=== PATIENT | female | born 1995 | race American Indian/Alaskan Native ===

== ENCOUNTER 2018-04-03 02:57 | Emergency (ER) | payer MEDICAID ==
[2018-04-03 03:23] VITALS: BP 113/64
--- NOTE | 2018-04-03 03:30 | EDM.PDOC ---
ED HPI GENERAL MEDICAL PROBLEM - General Chief Complaint: ENT Problem Stated Complaint: COUGH, FEVER [id number] Time Seen by Provider: 04/03/18 03:29 Source of Information: Reports: Patient History Limitations: Reports: No Limitations - History of Present Illness INITIAL COMMENTS - FREE TEXT/NARRATIVE: got sick yesterday with baby, c/o fever and sore throat. Throat Pain Score (Numeric/FACES): 6 - Related Data Allergies Allergy/AdvReac Type Severity Reaction Status Date / Time No Known Allergies Allergy Verified 04/03/18 03:03 Home Meds: Home Meds Ferrous Sulfate [Iron] 1 tab PO BID 08/17/16 [History] Acetaminophen [Tylenol] 650 mg PO Q6H PRN #30 tablet 12/20/16 [Rx] Docusate Sodium [Colace] 100 mg PO BID PRN #60 cap 12/20/16 [Rx] Ibuprofen [IJD: Ibuprofen] 600 mg PO Q6H PRN #30 tablet 12/20/16 [Rx] Past Medical History - Past Health History Medical/Surgical History: Denies Medical/Surgical History HEENT History: Reports: None Cardiovascular History: Reports: None Respiratory History: Reports: Other (See Below) Other Respiratory History: Reactive Airway Disease Gastrointestinal History: Reports: None Genitourinary History: Reports: None 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/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 Musculoskeletal History: Reports: Fracture Other Musculoskeletal History: broke her leg at 6 years old Neurological History: Reports: None Psychiatric History: Reports: None Endocrine/Metabolic History: Reports: None Hematologic History: Reports: Anemia Immunologic History: Reports: None Oncologic (Cancer) History: Reports: None Dermatologic History: Reports: None - Infectious Disease History Infectious Disease History: Reports: Chicken Pox - Past Surgical History Head Surgeries/Procedures: Reports: None Social & Family History - Family History Family Medical History: Noncontributory - Tobacco Use Smoking Status *Q: Never Smoker Second Hand Smoke Exposure: No - Caffeine Use Caffeine Use: Reports: None ED ROS ENT - Review of Systems Review Of Systems: ROS reveals no pertinent complaints other than HPI. ED EXAM, ENT - Physical Exam Exam: See Below Exam Limited By: No Limitations General Appearance: Alert, WD/WN, Mild Distress, Other (upset) Ears: TM Dullness Nose: Normal Inspection Mouth/Throat: Pharyngeal Erythema, Tonsillar Erythema Head: Atraumatic Neck: Non-Tender, Full Range of Motion Respiratory/Chest: No Respiratory Distress, Lungs Clear, Normal Breath Sounds, No Accessory Muscle Use Cardiovascular: Regular Rate, Rhythm GI/Abdominal: Soft, Non-Tender Neurological: Alert, Oriented, Normal Cognition, Normal Gait, No Motor/Sensory Deficits Psychiatric: Flat Affect Skin: Warm, Dry, Normal Color Lymphatic: No Adenopathy Course - Vital Signs Last Recorded V/S: Last Vital Signs Temp 37.7 C 04/03/18 02:59 Pulse 105 H 04/03/18 02:59 Resp 18 04/03/18 02:59 BP 113/64 04/03/18 02:59 Pulse Ox 99 04/03/18 02:59 - Orders/Labs/Meds Orders: Active Orders 24 hr Category Date Time Status CULTURE STREP A CONFIRMATION [RM] Stat Lab 04/03/18 03:10 Results STREP SCRN A RAPID W CULT CONF [RM] Stat Lab 04/03/18 03:10 Results - Re-Assessments/Exams Free Text/Narrative Re-Assessment/Exam: 04/03/18 03:37 results discussed with pt. Departure - Departure Time of Disposition: 03:37 Disposition: Home, Self-Care 01 Condition: Good Clinical Impression: Tonsillitis - Discharge Information Instructions: Tonsillitis, [id number] Forms: ED Department Discharge Additional Instructions: 1) avoid solid foods and scratchy foods 2) take tylenol or motrin for fever 3) recheck as needed rx given; amox 250mg tid x 30 - My Orders Last 24 Hours: My Active Orders 04/03/18 03:10 CULTURE STREP A CONFIRMATION [RM] Stat STREP SCRN A RAPID W CULT CONF [RM] Stat - Assessment/Plan Last 24 Hours: My Active Orders 04/03/18 03:10 CULTURE STREP A CONFIRMATION [RM] Stat STREP SCRN A RAPID W CULT CONF [RM] Stat
[2018-04-03] MEDS ORDERED: Amoxicillin 500 MG Cap PO ONE (03:37)
== END 2018-04-03 04:01 | disposition home or self-care (01) ==
LOC: DL.ED 02:57
DX: J03.90 Acute tonsillitis, unspecified (principal)
CPT/HCPCS: 87081; 87430; 99283; A9270

== ENCOUNTER 2020-07-26 18:21 | Emergency (ER) | payer BC, MEDICAID ==
[2020-07-26 19:38] VITALS: BP 104/61; PULSE 65
[2020-07-26] MEDS ORDERED: Sodium Chloride 0.9% 10 ML Syringe FLUSH PRN (19:54)
--- NOTE | 2020-07-26 20:03 | EDM.PDOC ---
<Dylan Cortez - Last Filed: 07/26/20 22:58> ED HPI GENERAL MEDICAL PROBLEM - General Chief Complaint: Abdominal Pain Stated Complaint: LOWER QAUDRANT WITH NAUSEA, PER PT Time Seen by Provider: 07/26/20 19:40 Source of Information: Reports: Patient History Limitations: Reports: No Limitations - History of Present Illness INITIAL COMMENTS - FREE TEXT/NARRATIVE: Patient is a 25 year old female presenting to the ED with lower abdominal pain. It is located in the lower left quadrant. It started around 16:20 today and was worse at 17:00. Patient tried tylenol at 17:45 but that did not make it better. Pain is constant and 7.5/10. Patient has associated N/V and vomited 2x. LMP was mid-June, and she states that she is quite regular and expects to get er period at the end of the week if she is not . She is unsure and states that she could be . She states the pain is different than period cramps. SHe is on no other prescription medications, and has no allergies. Non-smoker. Onset: Today, Sudden Onset Date: 07/26/20 Onset Time: 16:20 Location: Reports: Abdomen Quality: Reports: Sharp Severity: Severe Associated Symptoms: Reports: Nausea/Vomiting Middle Abdominal Pain Score (Numeric/FACES): 7 - Related Data Allergies Allergy/AdvReac Type Severity Reaction Status Date / Time No Known Allergies Allergy Verified 07/26/20 19:33 Home Meds: Home Meds Ferrous Sulfate [Iron] 1 tab PO BID 08/17/16 [History] Acetaminophen [Tylenol] 650 mg PO Q6H PRN #30 tablet 12/20/16 [Rx] Docusate Sodium [Colace] 100 mg PO BID PRN #60 cap 12/20/16 [Rx] Ibuprofen [IJD: Ibuprofen] 600 mg PO Q6H PRN #30 tablet 12/20/16 [Rx] Past Medical History - Past Health History Medical/Surgical History: Denies Medical/Surgical History HEENT History: Reports: None Cardiovascular History: Reports: None Respiratory History: Reports: Other (See Below) Other Respiratory History: Reactive Airway Disease Gastrointestinal History: Reports: None Genitourinary History: Reports: None 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 Musculoskeletal History: Reports: Fracture Other Musculoskeletal History: broke her leg at 6 years old Neurological History: Reports: None Psychiatric History: Reports: None Endocrine/Metabolic History: Reports: None Hematologic History: Reports: Anemia Immunologic History: Reports: None Oncologic (Cancer) History: Reports: None Dermatologic History: Reports: None - Infectious Disease History Infectious Disease History: Reports: None - Past Surgical History Head Surgeries/Procedures: Reports: None Social & Family History - Family History Family Medical History: Noncontributory - Tobacco Use Smoking Status *Q: Never Smoker - Caffeine Use Caffeine Use: Reports: None - Recreational Drug Use Recreational Drug Use: No ED ROS GENERAL - Review of Systems Review Of Systems: Comprehensive ROS is negative, except as noted in HPI. ED EXAM, GI/ABD - Physical Exam Exam: See Below Exam Limited By: No Limitations General Appearance: Alert, Mild Distress Eyes: Bilateral: Normal Appearance Ears: Normal External Exam Nose: Normal Inspection Head: Atraumatic Neck: Normal Inspection, Full Range of Motion Respiratory/Chest: No Respiratory Distress, Lungs Clear, Normal Breath Sounds, No Accessory Muscle Use Cardiovascular: Normal Peripheral Pulses, Regular Rate, Rhythm GI/Abdominal Exam: No Distention, Tender, Other (Pain elicited from pressing in LLQ and LRQ. LRQ palpation radiated pain back to the left. ) (Female) Exam: Deferred Rectal (Female) Exam: Deferred Back Exam: Normal Inspection Extremities: Normal Inspection, Non-Tender Neurological: Alert, Oriented, Normal Cognition Psychiatric: Normal Affect Skin Exam: Warm, Dry, Normal Color, No Rash Course - Re-Assessments/Exams Free Text/Narrative Re-Assessment/Exam: 07/26/20 20:06 After initial exam, labs were ordered: UA/UA, UPT, UDS, CBC, CMP, IV. Possibility exists for GI issue versus urinary issue versus reproductive issue. Will consider imaging if labs negative. Free Text/Narrative Re-Assessment/Exam: 07/26/20 20:26 Patient's UA returned. Hcg neg. WBC 15. CT scan ordered. 07/26/20 22:12 CT showed no renal stones and normal kidneys, as well as moderate stool burden. Some concern for PID. Pelvic US ordered Free Text/Narrative Re-Assessment/Exam: 07/26/20 22:44 Patient received pelvic exam from attending. Wet prep sent. Cervical motion tenderness noted. WIll give 1g Rocephin now. Will send home with antibiotics but will first wait for results of wet prep. Departure - Departure Disposition: Home, Self-Care 01 Clinical Impression: Constipation by delayed colonic transit, PID (acute pelvic inflammatory disease) Abdominal pain Qualifiers: Abdominal location: lower abdomen, unspecified Qualified Code(s): R10.30 - Lower abdominal pain, unspecified - Discharge Information *PRESCRIPTION DRUG MONITORING PROGRAM REVIEWED*: Not Applicable *COPY OF PRESCRIPTION DRUG MONITORING REPORT IN PATIENT DEBBIE: Not Applicable Instructions: Constipation, Adult, Pelvic Inflammatory Disease, [id number] Referrals: Regina Tapia MD [Primary Care Provider] - Forms: ED Department Discharge Additional Instructions: doxycycline 100mg one twice daily Flagyl 150mg one twice daily - Do not drink alcohol while taking this medication increase fluids mirlax one capful daily in 8 ounces liquid clinic follow up if symptoms worsen Sepsis Event Note (ED) - Evaluation Sepsis Screening Result: No Definite Risk <Cynthia Torres - Last Filed: 07/27/20 04:05> ED HPI GENERAL MEDICAL PROBLEM - History of Present Illness INITIAL COMMENTS - FREE TEXT/NARRATIVE: Last BM today. No change in pain after BM. Last ate snack around 1230. Pain sudden type onset. Denied fever or chills. Some increase in vaginal discharge occasional odor noted. No known hx of ovarian cysts. Reports pain improved from initial presentation to ED. ED EXAM, GI/ABD - Physical Exam (Female) Exam: Normal External Exam, Normal Speculum Exam, Adnexal Tenderness (mild left greater), Cervix Motion Tenderness. No: Uterine Tenderness, Vaginal Lesions Course - Vital Signs Last Recorded V/S: Last Vital Signs Temp 97.8 F 07/26/20 19:34 Pulse 65 07/26/20 19:34 Resp 18 07/26/20 19:34 BP 104/61 07/26/20 19:34 Pulse Ox 100 07/26/20 19:34 - Orders/Labs/Meds Orders: Active Orders 24 hr Category Date Time Status Cervical Spine wo Cont [CT] Urgent Exams 07/26/20 19:57 Stop Req Head wo Cont [CT] Urgent Exams 07/26/20 19:57 Stop Req CHLAMYDIA AND GONORRHEA BY TMA Urgent Lab 07/26/20 22:44 Received Peripheral IV Insertion Adult [OM.PC] Stat Oth 07/26/20 19:54 Ordered Labs: Laboratory Tests 07/26/20 07/26/20 07/26/20 Range/Units 19:40 19:53 19:53 WBC 15.4 H (5.0-10.0) 10^3/uL RBC 4.28 (4.2-5.4) 10^6/uL Hgb 13.0 D (12.0-16.0) g/dL Hct 39.5 (37.0-47.0) % MCV 92.3 D (80-100) fL MCH 30.4 (27.0-34.0) pg MCHC 32.9 L (33.0-35.0) g/dL Plt Count 236 (150-450) 10^3/uL Neut % (Auto) 88.3 H (42.2-75.2) % Lymph % (Auto) 6.3 L (20.5-50.1) % Newberry % (Auto) 5.1 (2-8) % Eos % (Auto) 0.2 L (1.0-3.0) % Baso % (Auto) 0.1 (0.0-1.0) % Sodium 139 (136-145) mmol/L Potassium 3.7 (3.5-5.1) mmol/L Chloride 104 (98-107) mmol/L Carbon Dioxide 25 (21-32) mmol/L Anion Gap 13.7 H (7-13) mEq/L BUN 13 (7-18) mg/dL Creatinine 0.68 (0.55-1.02) mg/dL Est Cr Clr Drug Dosing 90.11 mL/min Estimated GFR (MDRD) > 60 BUN/Creatinine Ratio 19.1 (No establ ref range) Glucose 97 (74-99) mg/dL Calcium 8.9 (8.5-10.1) mg/dL Total Bilirubin 0.5 (0.2-1.0) mg/dL AST 15 (15-37) U/L ALT 15 (14-59) U/L Alkaline Phosphatase 65 (46-116) U/L Total Protein 7.3 (6.4-8.2) g/dL Albumin 3.9 (3.4-5.0) g/dL Globulin 3.4 Albumin/Globulin Ratio 1.1 Urine Color (YELLOW) Urine Appearance (CLEAR) Urine pH (5.0-9.0) Ur Specific [place] (1.005-1.030) Urine Protein (NEGATIVE) Urine Glucose (UA) (NEGATIVE) Urine Ketones (NEGATIVE) Urine Occult Blood (NEGATIVE) Urine Nitrite (NEGATIVE) Urine Bilirubin (NEGATIVE) Urine Urobilinogen (0.2-1.0) mg/dL Ur Leukocyte Esterase (NEGATIVE) Urine RBC /HPF Urine WBC (0-5/HPF) /HPF Ur Epithelial Cells (NOT SEEN) /HPF Amorphous Sediment (NOT SEEN) /HPF Urine Bacteria (0-FEW/HPF) /HPF Urine Mucus (NOT SEEN) /LPF Urine HCG, Qual Urine Opiates Screen Negative (NEGATIVE) Ur Oxycodone Screen Negative (NEGATIVE) Urine Methadone Screen Negative (NEGATIVE) Ur Barbiturates Screen Negative (NEGATIVE) U Tricyclic Antidepress Negative (NEGATIVE) Ur Phencyclidine Scrn Negative (NEGATIVE) Ur Amphetamine Screen Negative (NEGATIVE) U Methamphetamines Scrn Negative (NEGATIVE) Urine MDMA Screen Negative (NEGATIVE) U Benzodiazepines Scrn Negative (NEGATIVE) Urine Cocaine Screen Negative (NEGATIVE) U Marijuana (THC) Screen Negative (NEGATIVE) 07/26/20 07/26/20 Range/Units 19:55 19:55 WBC (5.0-10.0) 10^3/uL RBC (4.2-5.4) 10^6/uL Hgb (12.0-16.0) g/dL Hct (37.0-47.0) % MCV (80-100) fL MCH (27.0-34.0) pg MCHC (33.0-35.0) g/dL Plt Count (150-450) 10^3/uL Neut % (Auto) (42.2-75.2) % Lymph % (Auto) (20.5-50.1) % Newberry % (Auto) (2-8) % Eos % (Auto) (1.0-3.0) % Baso % (Auto) (0.0-1.0) % Sodium (136-145) mmol/L Potassium (3.5-5.1) mmol/L Chloride (98-107) mmol/L Carbon Dioxide (21-32) mmol/L Anion Gap (7-13) mEq/L BUN (7-18) mg/dL Creatinine (0.55-1.02) mg/dL Est Cr Clr Drug Dosing mL/min Estimated GFR (MDRD) BUN/Creatinine Ratio (No establ ref range) Glucose (74-99) mg/dL Calcium (8.5-10.1) mg/dL Total Bilirubin (0.2-1.0) mg/dL AST (15-37) U/L ALT (14-59) U/L Alkaline Phosphatase (46-116) U/L Total Protein (6.4-8.2) g/dL Albumin (3.4-5.0) g/dL Globulin Albumin/Globulin Ratio Urine Color Yellow (YELLOW) Urine Appearance Slightly cloudy (CLEAR) Urine pH 5.5 (5.0-9.0) Ur Specific [place] >= 1.030 (1.005-1.030) Urine Protein 100 H (NEGATIVE) Urine Glucose (UA) Negative (NEGATIVE) Urine Ketones 40 H (NEGATIVE) Urine Occult Blood Trace-lysed H (NEGATIVE) Urine Nitrite Negative (NEGATIVE) Urine Bilirubin Small H (NEGATIVE) Urine Urobilinogen 0.2 (0.2-1.0) mg/dL Ur Leukocyte Esterase Negative (NEGATIVE) Urine RBC 5-10 H /HPF Urine WBC 0-5 (0-5/HPF) /HPF Ur Epithelial Cells Many H (NOT SEEN) /HPF Amorphous Sediment Few (NOT SEEN) /HPF Urine Bacteria Few (0-FEW/HPF) /HPF Urine Mucus Moderate H (NOT SEEN) /LPF Urine HCG, Qual Negative Urine Opiates Screen (NEGATIVE) Ur Oxycodone Screen (NEGATIVE) Urine Methadone Screen (NEGATIVE) Ur Barbiturates Screen (NEGATIVE) U Tricyclic Antidepress (NEGATIVE) Ur Phencyclidine Scrn (NEGATIVE) Ur Amphetamine Screen (NEGATIVE) U Methamphetamines Scrn (NEGATIVE) Urine MDMA Screen (NEGATIVE) U Benzodiazepines Scrn (NEGATIVE) Urine Cocaine Screen (NEGATIVE) U Marijuana (THC) Screen (NEGATIVE) Meds: Medications Discontinued Medications Generic Name Dose Route Start Last Admin Trade Name Freq PRN Reason Stop Dose Admin Ceftriaxone Sodium 1 gm/ 50 mls @ 100 mls/hr 07/26/20 22:42 07/26/20 22:54 Sodium Chloride IV 07/26/20 23:11 100 mls/hr ONETIME ONE Administration Iopamidol 100 ml 07/26/20 21:11 07/26/20 21:13 Isovue-300 (61%) IVPUSH 07/26/20 21:12 75 ml ONETIME ONE Administration Sodium Chloride 10 ml 07/26/20 19:54 07/26/20 20:18 Saline Flush FLUSH 10 ml ASDIRECTED PRN Administration Keep Vein Open - Re-Assessments/Exams Free Text/Narrative Re-Assessment/Exam: 2448 Pain has almost completely resolved. TC received from Radiologist, concern for acute appendicitis. Initial CT reported not identified, No mention on initial US report. Different Radiologist now viewing CT. Clinically patients pain improved, Pain greatest on pelvic exam with CMT, minimal right adnexal tenderness greater on left adnexal remains afebrile, no nausea. TC Dr Key, here to assess patient. Agree patient does not appear clinically at present to have acute appendicitis. Patient will return if symptoms worsen with return of nausea, pain fever. I was present with resident during history and exam. I discussed the case with resident and agree with the findings and plan as documented in the residents note. Departure - Departure Time of Disposition: 00:07 Condition: Good Sepsis Event Note (ED) - Focused Exam Vital Signs: Vital Signs Temp Pulse Resp BP Pulse Ox 07/26/20 19:34 97.8 F 65 18 104/61 100 - My Orders Last 24 Hours: My Active Orders 07/26/20 19:57 Cervical Spine wo Cont [CT] Urgent Head wo Cont [CT] Urgent 07/26/20 22:44 CHLAMYDIA AND GONORRHEA BY TMA Urgent - Assessment/Plan Last 24 Hours: My Active Orders 07/26/20 19:57 Cervical Spine wo Cont [CT] Urgent Head wo Cont [CT] Urgent 07/26/20 22:44 CHLAMYDIA AND GONORRHEA BY TMA Urgent
[2020-07-26 20:20] LABS: ANION GAP 13.7 mEq/L (7-13); CHLORIDE,CL 104 mmol/L (98-107); SODIUM,NA 139 mmol/L (136-145)
[2020-07-26] MEDS ORDERED: Iopamidol 612 MG/ML 100 ML Bottle IVPUSH ONE (21:11)
--- NOTE | 2020-07-26 21:47 | CT ---
PROCEDURE INFORMATION: Exam: CT Abdomen And Pelvis With Contrast Exam date and time: 07/26/2020 8:46 PM Age: 25 years old Clinical indication: Abdominal pain; Generalized; Additional info: Abd pain wbc 15,000 TECHNIQUE: Imaging protocol: Computed tomography of the abdomen and pelvis with intravenous contrast. Radiation optimization: All CT scans at this facility use at least one of these dose optimization techniques: automated exposure control; mA and/or kV adjustment per patient size (includes targeted exams where dose is matched to clinical indication); or iterative reconstruction. Contrast material: [id number]; Contrast volume: 75 ml; Contrast route: INTRAVENOUS (IV); COMPARISON: No relevant prior studies available. FINDINGS: Lungs: The visualized portions of the lung bases are normal. Heart: The cardiac structures are normal. Liver: The liver is normal. Gallbladder and bile ducts: The gallbladder is normal. Pancreas: The pancreas is normal. Spleen: The spleen is normal. Adrenals: The adrenal glands are normal. Kidneys and ureters: The kidneys are normal. Stomach and bowel: Unremarkable. No obstruction. No mucosal thickening. Moderate stool load. Appendix: Cecum is localized within the midline inferior pelvis. The appendix is not identified. Intraperitoneal space: There is moderate free fluid within the inferior pelvis. Vasculature: The aorta is normal. Lymph nodes: Unremarkable. No enlarged lymph nodes. Bladder: Unremarkable as visualized. Reproductive: There is an enlarged uterus with a distended endometrium. There is a 2.5 cm peripherally enhancing hypodensity in the right adnexa with moderate inferior pelvis and right adnexal free fluid collection. Bones/joints: Unremarkable. No acute fracture. Soft tissues: Unremarkable. IMPRESSION: Enlarged uterus with distended endometrium and peripherally enhancing right adnexal mass. Moderate free fluid in the pelvis. Differential diagnosis includes intrauterine gestational sac, ruptured ectopic , tubo-ovarian abscess with PID. Recommend pelvic ultrasound.
[2020-07-26] MEDS ORDERED: cefTRIAXone 1 GM in Sodium Chloride 0.9% 50 ML IV ONE (22:42)
--- NOTE | 2020-07-26 23:02 | US ---
PROCEDURE INFORMATION: Exam: US Pelvis Limited, Transabdominal Exam date and time: 07/26/2020 10:17 PM Age: 25 years old Clinical indication: Pelvic pain; Additional info: Pain recommended CT TECHNIQUE: Imaging protocol: Real-time transabdominal pelvic ultrasound with image documentation. Limited exam. COMPARISON: CT Abdomen Pelvis w Cont 07/26/2020 8:46 PM Findings: The uterus is anteverted and measures 7.1 x 5.6 x 5.1 cm. The myometrium is homogeneous. The endometrium measures 5 mm in thickness and is normal. The right ovary measures 4.4 x 2.4 x 3.0 cm. The right ovary contains a 1.7 cm thick walled cyst. The left ovary is not confidently visualized. There is a moderate volume of free fluid in the pelvis. Impression: 1. Normal appearance of the uterus and endometrium. 2. Involuting follicle in the right ovary. The left ovary is not confidently visualized.
--- NOTE | 2020-07-27 07:45 | CONS ---
SERVICE DATE: 07/26/2020 INTRODUCTION: This 25-year-old female presented to the emergency room with an 8- hour history of right lower quadrant abdominal pain. This was quite severe in origin and came on relatively suddenly at her work. She has had several episodes of vomiting. She presented to the emergency room. Initially, her white blood cell count was elevated to 16,000, and she had a CT scan that was initially read as normal. Repeat evaluation of the CAT scan, however, was questionable, and they recommended an ultrasound, which then shows a probable inflammation around the appendix, but not really that definite. By physical examination, she has cervical motion tenderness of the uterus and some discharge. She is due to have her menstrual cycle this next week. PAST MEDICAL HISTORY: ALLERGIES: The patient has no allergies. CURRENT MEDICATIONS: Ibuprofen and iron tablets as needed and stool softeners. FAMILY HISTORY: Negative. SOCIAL HISTORY: Negative. REVIEW OF SYSTEMS: Negative for all systems. PHYSICAL EXAMINATION: Chest: The lungs are clear bilaterally. Heart: Normal sinus rhythm. Abdomen: Quite scaphoid. Her BMI is only 17. She does not have upper abdominal tenderness. Has no Rovsing sign. No rebound tenderness in the right lower quadrant, but does have some pain to palpation in the right lower quadrant. She localizes the pain primarily, however, on the left side. Extremities: Normal. Neurologic: Intact. ASSESSMENT: Abdominal pain. PLAN: I think this patient is only 8 hours out and she does have an appendicitis. It is quite an early one. She does not fit the exact onset of appendicitis, and currently as she had been in the emergency room, her pain all but dissipated. You could only elicit pain to deep palpation. I think it is reasonable she lives local to have her monitor this as an outpatient for tonight and tomorrow. I did discuss the risks of surgery and the risks of observation. I told her that if she does have an appendicitis, this certainly will get worse within the next 24 hours, and she is to return to the emergency room, and if she does return, we will simply set her up for laparoscopic examination and appendectomy if it is positive. She is agreeable to this approach. Emergency room had given her some Cipro and doxycycline for possible PID by their exam. I think it is okay to go ahead and start the antibiotics tomorrow. If she does have an appendicitis, she will return. [facility] /[id number]
[2020-07-31 11:46] LABS: C.TRACHOMATIS BY TMA Negative (Negative); N.GONORRHOEAE BY TMA Negative (Negative)
== END 2020-07-27 00:03 | disposition home or self-care (01) ==
LOC: DL.ED 18:21
DX: R10.32 Left lower quadrant pain (principal); K59.01 Slow transit constipation; N73.9 Female pelvic inflammatory disease, unspecified
CPT/HCPCS: 36415; 74177; 76830; 76857; 80053; 80305-QW; 81001; 81025; 85025; 87210; 87491; 87591; 96365; 99284-25; J0696; J7050; Q9967

== ENCOUNTER 2025-07-07 08:57 | Emergency (ER) | payer BC, MEDICAID ==
[2025-07-07 10:24] LABS: BASOPHILS PERCENT AUTO 0.3 % (0.0-1.0); EOSINOPHILS PERCENT AUTO 0.6 % (1.0-3.0); LYMPHOCYTES PERCENT AUTO 24.7 % (20.5-50.1); MONOCYTES PERCENT AUTO 9.4 % (2-8); NEUTROPHILS PERCENT AUTO 65.0 % (42.2-75.2); PLATELET COUNT,PLT 235 10^3/uL (150-450); RED BLOOD CELL COUNT 4.12 10^6/uL (4.2-5.4); WHITE BLOOD CELL COUNT,WBC 6.9 10^3/uL (5.0-10.0)
[2025-07-07 10:40] LABS: BLOOD UREA NITROGEN,BUN 11.0 mg/dL (7-18); CARBON DIOXIDE,CO2 25.0 mmol/L (21-32); CHLORIDE,CL 105.0 mmol/L (98-107); CREATININE 0.63 mg/dL (0.55-1.02); EST CRCL DRUG DOSING (CG) 97.1 mL/min; ESTIMATED GFR 124.0 mL/min (>=60); GLUCOSE RANDOM 86.0 mg/dL (70-99); POTASSIUM,K 4.2 mmol/L (3.5-5.1); SODIUM,NA 141.0 mmol/L (136-145)
[2025-07-07 11:21] VITALS: BP 108/64; PULSE 84
== END 2025-07-07 11:06 | disposition home or self-care (01) ==
LOC: DL.ED 08:57
DX: O99.891 Other specified diseases and conditions complicating pregnancy (principal); R10.2 Pelvic and perineal pain; Z79.899 Other long term (current) drug therapy; Z3A.00 Weeks of gestation of pregnancy not specified
CPT/HCPCS: 36415; 76801; 80048; 84702; 85025; 99283; 99284

== ENCOUNTER 2025-08-29 17:04 | Emergency (ER) | payer MEDICAID ==
[2025-08-29 21:02] VITALS: BP 121/63; PULSE 87
[2025-08-31 12:26] LABS: C.TRACHOMATIS BY TMA Negative (Negative); N.GONORRHOEAE BY TMA Negative (Negative)
== END 2025-08-29 19:00 | disposition home or self-care (01) ==
LOC: DL.ED 17:04
DX: O03.4 Incomplete spontaneous abortion without complication (principal)
CPT/HCPCS: 36415; 76815; 84702; 87210; 87491; 87591; 99283; 99284